=== PATIENT | male | born 1990 | race Caucasian/White ===

== ENCOUNTER 2020-11-14 21:35 | Emergency (ER) | payer SELFPAY ==
[~2020-11-14] VITALS: Ht 175.3 cm; Wt 91.0 kg
[2020-11-14 21:45] VITALS: BP 100/59
[2020-11-14 22:10] LABS: CLARITY URINE CLEAR (CLEAR); COLOR URINE YELLOW (YELLOW); KETONES URINE TRACE (NEGATIVE); LEUKOCYTE ESTERASE URINE 2+ (NEGATIVE); NITRITE URINE NEGATIVE (NEGATIVE); OCCULT BLOOD URINE NEGATIVE (NEGATIVE); PROTEIN URINE NEGATIVE (NEGATIVE); SPECIFIC GRAVITY URINE 1.019 (1.005-1.030)
[2020-11-14] MEDS ORDERED: DOXYCYCLINE HYCLATE 100MG CAPSULE PO ONE (22:30)
[2020-11-14] MEDS ORDERED: LIDOCAINE HCL 1% 20ML VIAL (Pyxis) INJ INFIL ONE (22:30)
[2020-11-14] MEDS ORDERED: CEFTRIAXONE SODIUM 500 MG/VIAL IM ONE (22:30)
[2020-11-14] MEDS ORDERED: DOXY100C2 MT (22:31)
== END 2020-11-14 23:10 | disposition home or self-care (01) ==
LOC: ER 21:35
DX: N30.00 Acute cystitis without hematuria (principal)
CPT/HCPCS: 81003; 96372; 99283; J0696; J3490